=== PATIENT | male | born 1995 | race Caucasian/White ===

== ENCOUNTER 2020-03-08 09:48 | Emergency (ER) | payer OTHER ==
[~2020-03-08] VITALS: Ht 190.5 cm; Wt 95.3 kg
[2020-03-08] MEDS ORDERED: PROAIR HFA8.5 GM INH (11:44)
[2020-03-08] MEDS ORDERED: MEDROL DOSEPAK4 MG PO (11:44)
[2020-03-08] MEDS ORDERED: VISTARIL25 MG PO (11:44)
== END 2020-03-08 11:49 | disposition home or self-care (01) ==
LOC: ED 09:48
DX: F41.9 Anxiety disorder, unspecified (principal); J20.9 Acute bronchitis, unspecified; Z20.828 Contact with and (suspected) exposure to other viral communicable diseases

== ENCOUNTER 2023-02-07 10:34 | Emergency (ER) | payer SELFPAY ==
[~2023-02-07] VITALS: Ht 182.8 cm; Wt 86.2 kg
[~2023-02-07 10:34] MED LIST: MEDROL DOSEPAK4 MG PO; PROAIR HFA8.5 GM INH; VISTARIL25 MG PO
== END 2023-02-07 11:10 | disposition home or self-care (01) ==
LOC: ED 10:34
DX: U07.1 COVID-19 (principal); F41.9 Anxiety disorder, unspecified

== ENCOUNTER 2023-05-20 16:48 | Emergency (ER) | payer SELFPAY ==
[~2023-05-20] VITALS: Wt 85.7 kg
[2023-05-20] MEDS ORDERED: Lidocaine Hydrochloride 15 ML UDC PO STA (17:29)
[2023-05-20] MEDS ORDERED: Dicyclomine Hydrochloride 20 MG/10 ML OSYR PO STA (17:29)
[2023-05-20] MEDS ORDERED: MG-AL HYDROXIDE/SIMETICONE 30 ML UDC PO STA (17:29)
[2023-05-20 17:52] LABS: BASO % 0.5 % (0.0-1.0); EOS # 0.3 10*3/uL (0.0-0.4); EOS % 5.1 % (1.0-4.0); HEMATOCRIT 40.9 % (42.0-52.0); LYMPH # 1.7 10*3/uL (1.3-4.4); LYMPH % 28.7 % (27.0-41.0); MEAN CELL VOLUME 92.5 fl (80.0-94.0); MEAN CORPUSCULAR HGB CONC 33.5 g/dl (33.0-37.0); MONO # 0.4 10*3/uL (0.1-1.0); MONO % 7.5 % (3.0-9.0); NEUT # 3.4 10*3/uL (2.3-7.9); PLATELET COUNT AUTOMATED 163 10*3/uL (130-400); RED BLOOD COUNT 4.42 10*6/uL (4.50-5.90); RED CELL DISTRI WIDTH 12.2 % (0-14.5); WHITE BLOOD COUNT 5.9 10*3/uL (4.8-10.8)
[2023-05-20 18:02] LABS: ACT PARTIAL THROMBO TIME 26.7 SECONDS (20.0-32.1)
[2023-05-20 18:15] LABS: ALKALINE PHOSPHATASE 51 U/L (46-116); BUN 7 mg/dl (9-23); CHLORIDE 108 mmol/L (98-107); SGPT/ALT 11 U/L (5-49); TOTAL PROTEIN 6.7 gm/dL (6.0-8.0)
[2023-05-20] MEDS ORDERED: OMEPRAZOLE40 MG PO (18:26)
== END 2023-05-20 19:01 | disposition home or self-care (01) ==
LOC: ED 16:48
PROVIDERS: Nurse Practitioner Family
DX: K21.9 Gastro-esophageal reflux disease without esophagitis (principal); R12 Heartburn; F41.9 Anxiety disorder, unspecified; Z86.16 Personal history of COVID-19

== ENCOUNTER 2023-12-25 09:32 | Emergency (ER) | payer SELFPAY ==
[~2023-12-25 09:32] MED LIST changes: +OMEPRAZOLE40 MG PO
== END 2023-12-25 10:04 | disposition home or self-care (01) ==
LOC: ED 09:32
DX: H93.11 Tinnitus, right ear (principal)

== ENCOUNTER 2025-03-24 13:27 | Emergency (ER) | payer OTHER ==
[~2025-03-24] VITALS: Wt 97.5 kg
[2025-03-24] MEDS ORDERED: SODIUM CHLORIDE 0.9% 1,000 ML IV ONE (13:40)
[2025-03-24] MEDS ORDERED: Acetaminophen/Hydrocodone 5 MG/325 MG TABLET PO ONE (13:40)
[2025-03-24] MEDS ORDERED: IOHEXOL 300 MG/ML 100 ML VIAL IV ONE (13:45)
[2025-03-24] MEDS ORDERED: IOHEXOL 300 MG/ML 100 ML VIAL ONE (14:06)
[2025-03-24 14:19] LABS: BASO # 0.0 10*3/uL (0.0-0.1); BASO % 0.3 % (0.0-1.0); EOS # 0.2 10*3/uL (0.0-0.4); EOS % 1.6 % (1.0-4.0); MEAN CELL VOLUME 93.8 fl (80.0-94.0); MEAN CORPUSCULAR HGB 31.8 pg (27.0-31.0); MEAN PLATELET VOLUME 9.8 fl (9.6-12.3); MONO # 0.7 10*3/uL (0.1-1.0); MONO % 7.9 % (3.0-9.0); NEUT # 6.5 10*3/uL (2.3-7.9); NEUT % 69.8 % (47.0-73.0); NUCLEATED RED BLOOD CELL 0.0 % (0.0-0.0); NUCLEATED RED BLOOD CELL 0.0 10*3/uL (0.0-0.0); PLATELET COUNT AUTOMATED 207 10*3/uL (130-400); RED CELL DISTRI WIDTH 11.4 % (0-14.5)
[2025-03-24 14:41] LABS: BUN 15 mg/dl (9-23); SGPT/ALT 24 U/L (5-49)
[2025-03-24 16:29] LABS: BILIRUBIN Negative (Negative); BLOOD Negative (Negative); CLARITY Clear (Clear); COLOR Yellow (Yellow); KETONE Negative (Negative); LEUKO ESTERASE Negative (Negative); NITRITE Negative (Negative); PH 5.5 (4.5-8.0); SPECIFIC GRAVITY >= 1.030 (1.001-1.030); UROBILINOGEN 0.2 E.U./dl (0.0-1.0)
[2025-03-24 16:37] LABS: WBC 0-2 wbc/hpf (0-5)
[2025-03-24] MEDS ORDERED: REMDESIVIR 200 MG in SODIUM CHLORIDE 0.9% 210 ML IV ONE (16:45)
[2025-03-24] MEDS ORDERED: HYDROCODONE-AC1 EAC1 PO (18:36)
[2025-03-25] MEDS ORDERED: REMDESIVIR 100 MG in SODIUM CHLORIDE 0.9% 230 ML IV SCH (14:00)
== END 2025-03-24 18:50 | disposition home or self-care (01) ==
LOC: ED 13:27
PROVIDERS: Nurse Practitioner Family
DX: S32.039A Unspecified fracture of third lumbar vertebra, initial encounter for closed fracture (principal); F41.9 Anxiety disorder, unspecified; K21.9 Gastro-esophageal reflux disease without esophagitis; Z86.16 Personal history of COVID-19; V43.52XA Car driver injured in collision with other type car in traffic accident, initial encounter; Y93.89 Activity, other specified; Y92.828 Other wilderness area as the place of occurrence of the external cause; Y99.8 Other external cause status